=== PATIENT | female | born 1975 | race Caucasian/White ===

== ENCOUNTER → 2017-07-20 | Outpatient (CLI) | payer BC ==
[~2017-07-20] MED LIST: 00186-0370-20 IH; NEURONTIN300 MG/CAP PO; NORCO 325 MG-51 TAB PO; PAMELOR75 MG PO; PROAIR HFA0.09 MG/AC IH; ULTRAM 50MG TAB50 MG PO
== END ==
LOC: COL.RAD 15:34
DX: R51 Headache (principal); M54.2 Cervicalgia

== ENCOUNTER → 2019-08-27 | Outpatient (CLI) | payer BC | LOC: MC.RAD 10:26 | DX: Z13.21 Encounter for screening for nutritional disorder (principal) ==

== ENCOUNTER → 2020-10-24 | Outpatient (CLI) | payer BC | LOC: COL.RAD 06:35 | DX: M54.2 Cervicalgia (principal) ==

== ENCOUNTER → 2020-11-19 | Outpatient (CLI) | payer BC | LOC: COL.RAD 13:30 | DX: J90 Pleural effusion, not elsewhere classified (principal) | CPT/HCPCS: Q9967 ==

== ENCOUNTER → 2022-01-01 | Outpatient (CLI) | payer BC | LOC: MC.RAD 12:54 | DX: Z12.31 Encounter for screening mammogram for malignant neoplasm of breast (principal) ==